=== PATIENT | female | born 1995 | race Caucasian/White ===

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

== ENCOUNTER 2018-05-19 15:44 | Emergency (ER) | payer BC ==
--- NOTE | 2018-05-19 16:16 | ED ---
Abdominal Pain/Female - HPI Summary HPI Summary: The pt is a 22 y/o female [facility]/o abd pain since 3 days ago. She notes bloody diarrhea, nausea, MUNOZ, fatigue , and neck pain but denies vomiting, loss of appetite, dizziness, and light headedness. She was seen at the [facility] where she was given 2L IV fluids for dehydration. The intermittent cramping pain is rated 8/10 in severity at its worst. She denies recent domestic and international travel. She notes a hx of migraines and denies a hx of ulcers. - History of Current Complaint Chief Complaint: EDGeneral Stated Complaint: ABD PAIN/HEADACHE Time Seen by Provider: 05/19/18 16:13 Hx Obtained From: Patient Onset/Duration: Lasting Days - 3 days, Still Present Timing: Intermittent Episode Lasting Severity Initially: Moderate - 6/10 Severity Currently: Severe Pain Intensity: 8 Pain Scale Used: 0-10 Numeric Location: Diffuse Character: Cramping Aggravating Factor(s): Nothing Alleviating Factor(s): Nothing Associated Signs and Symptoms: Positive: Nausea, Diarrhea. Negative: Decreased Appetite, Vomiting Allergies/Adverse Reactions: Allergies Allergy/AdvReac Type Severity Reaction Status Date / Time diphenhydramine Allergy Swelling Verified 05/21/18 00:18 [From Benadryl] Of Face,Lips,& Throat Penicillins Allergy Swelling Verified 05/21/18 00:18 Of Face,Lips,& Throat PMH/Surg Hx/FS Hx/Imm Hx Previously Healthy: No Endocrine/Hematology History: Denies: Hx Diabetes Cardiovascular History: Denies: Hx Hypertension, Hx Pacemaker/ICD Respiratory History: Reports: Hx Asthma GI History: Denies: Hx Ulcer History: Denies: Hx Renal Disease Sensory History: Reports: Hx Contacts or Glasses Denies: Hx Hearing Aid Opthamlomology History: Reports: Hx Contacts or Glasses Neurological History: Reports: Hx Migraine, Other Neuro Impairments/Disorders - Hx neurocysticercosis Psychiatric History: Reports: Hx Anxiety, Hx Depression Denies: Hx Panic Disorder - Cancer History Cancer Type, Location and Year: None reported - Surgical History Surgery Procedure, Year, and Place: TONSILECTOMY Infectious Disease History: No Infectious Disease History: Denies: Traveled Outside the [place] in Last 30 Days - Family History Known Family History: Positive: Hypertension - father, Diabetes - gramma, Other - epilepsy - Social History Occupation: Student Lives: Dormitory/Roommates Alcohol Use: Rare Hx Substance Use: No Substance Use Type: Reports: None Hx Tobacco Use: No Smoking Status (MU): Never Smoked Tobacco Review of Systems Constitutional: Negative - Dizziness, light headedness Positive: Fatigue ENT: Other - Positive: Neck pain Positive: Abdominal Pain, Diarrhea, Nausea, Other - Positive: Blood in stool . Negative: Vomiting Positive: Headache All Other Systems Reviewed And Are Negative: Yes Physical Exam - Summary Physical Exam Summary: Appearance: Well-appearing, Well-nourished, lying in bed comfortably Skin: Warm, dry, no obvious rash Eyes: sclera anicteric, no conjunctival pallor ENT: mucous membranes moist, pharynx appears normal Neck: Supple, nontender Respiratory: Clear to auscultation, no signs of respiratory distress Cardiovascular: Mild tachycardia. No murmurs. Normal distal pulses in tibial and radial bilaterally. Abdomen: Soft, tender in the L side, normal active bowel sounds present, No peritoneal signs Musculoskeletal: Normal, Strength/ROM Intact Neurological: A&Ox3, awake and alert, mentation is normal, speech is fluent and appropriate Psychiatric: affect is normal, does not appear anxious or depressed Triage Information Reviewed: Yes Vital Signs On Initial Exam: Initial Vitals Temp Pulse Resp BP Pulse Ox 99.8 F 104 19 104/51 99 05/19/18 16:07 05/19/18 16:07 05/19/18 16:07 05/19/18 16:07 05/19/18 16:07 Vital Signs Reviewed: Yes Diagnostics - Vital Signs Vital Signs Temp Pulse Resp BP Pulse Ox 05/19/18 16:07 99.8 F 104 19 104/51 99 - Laboratory Lab Statement: Any lab studies that have been ordered have been reviewed, and results considered in the medical decision making process. - CT Abd/Pel CT CT Interpretation Completed By: Radiologist - IMPRESSION: No acute intra- abdominal findings. The ED physician reviewed this radiology report. Abdominal Pain Fem Course/Dx - Course Course Of Treatment: A 22 year-old F presents to the ED with a CC of abd pain since 3 days ago. She notes bloody diarrhea (lasting 3 days) , nausea, MUNOZ, fatigue , and neck pain but denies vomiting, loss of appetite, dizziness, and light headedness. A physical exam revealed mild tachycardia, L sided abdominal tenderness and no peritoneal signs. An abd/Pel CT is unremarkable.In the ED course, pt was given Dicyclomine 10 mg PO, N.s 0,9% 2000 ml IV and Ondansetron 8mg IV which improved the symptoms. Patient will be discharged with a final Dx of gastroenteritis and dehydration. Pt is agreeable with this plan. Allergies noted. - Diagnoses Provider Diagnoses: Gastroenteritis, Dehydration Discharge - Sign-Out/Discharge Documenting (check all that apply): Patient Departure - Discharge Plan Condition: Improved Disposition: HOME Patient Education Materials: Dehydration (ED), Gastroenteritis (ED) Referrals: [facility] [Z.BUSINESS, APPLICATION, OTHER] - 2 Days (if not better) - Billing Disposition and Condition Condition: IMPROVED Disposition: Home - Attestation Statements Document Initiated by Maya: Yes Documenting Scribe: Eli Li Provider For Whom Rodrigoibe is Documenting (Include Credential): Dr. Shilo Cain MD Scribe Attestation: Eli Duvall scribed for Dr. Shilo Cain MD on 05/25/18 at 0839. Scribe Documentation Reviewed: Yes Provider Attestation: The documentation as recorded by the rodrigoibeEli accurately reflects the service I personally performed and the decisions made by me, Dr. Shilo Cain MD
[2018-05-19] MEDS ORDERED: NS 0.9% 1000 ML* 2,000 ML IV ONE (16:28)
[2018-05-19] MEDS ORDERED: Dicyclomine CAP* 10 MG PO ONE (16:28)
[2018-05-19] MEDS ORDERED: Ondansetron INJ* 2 MG/ML VIAL IV ONE (16:29)
[2018-05-19] MEDS ORDERED: Iohexol 300* (CONTRAST) 10 ML SDV IV ONE (18:20)
[2018-05-19 20:32] VITALS: BP 117/89
== END 2018-05-19 20:43 | disposition home or self-care (01) ==
LOC: ED 15:44
DX: K52.9 Noninfective gastroenteritis and colitis, unspecified (principal); E86.0 Dehydration; Z88.0 Allergy status to penicillin; Z88.8 Allergy status to other drugs, medicaments and biological substances
CPT/HCPCS: 74177; 96374; 99283; A9270-GY; J2405; Q9967

== ENCOUNTER 2018-05-21 00:13 | Observation (INO) | payer BC ==
[2018-05-21] MEDS ORDERED: Metoclopramide IV* 5 MG/ML 2 ML VIAL IV SLOW PU ONE (01:32)
[2018-05-21] MEDS ORDERED: NS 0.9% 1000 ML* 2,000 ML IV ONE (01:32)
[2018-05-21] MEDS ORDERED: Pantoprazole IV* 40 MG IV ONE (01:33)
[2018-05-21 02:20] LABS: ABS Basophils 0.1 10^3/ul (0-0.2); ABS Eosinophils 0 10^3/ul (0-0.6); ABS Lymphocytes 1.4 10^3/ul (1.0-4.8); ABS Monocytes 1.4 10^3/ul (0-0.8); ABS Neutrophils 9.6 10^3/ul (1.5-7.7); ABS Nucleated RBC 0 10^3/ul; Eosinophil % 0 % (0-6); Hematocrit 36 % (35-47); Hemoglobin 12.2 g/dl (12.0-16.0); Lymphocyte % 11.5 % (25-47); Mean Corpuscular HGB Conc 34 g/dl (31-36); Mean Corpuscular Hemoglobin 28 pg (27-31); Mean Corpuscular Volume 83 fL (80-97); Nucleated Red Blood Cells % 0; Platelet Count 179 10^3/ul (150-450); Red Blood Count 4.31 10^6/ul (4.00-5.40); Red Cell Distribution Width 13 % (10.5-15); White Blood Count 12.5 10^3/ul (3.5-10.8)
[2018-05-21 02:28] LABS: INR 1.25 (0.77-1.02)
[2018-05-21 02:38] LABS: EGFR Non-African American 95.6 (>60)
[2018-05-21 02:42] LABS: Urine Appearance Cloudy; Urine Blood Negative (Negative); Urine Color Amber; Urine Ketones 1+ (Negative); Urine Protein 1+(30 mg/dL) (Negative); Urine Red Blood Cell 2+(6-10/hpf) (Absent); Urine Specific Gravity 1.036 (1.010-1.030); Urine Urobilinogen Negative (Negative); Urine White Blood Cell 2+(11-20/hpf) (Absent)
[2018-05-21] MEDS ORDERED: Levofloxacin 500 MG IVPREMIX(* 500 MG/100 ML BAG IVPB ONE (03:12)
[2018-05-21] MEDS ORDERED: Potassium Chloride LIQUID* 20 MEQ PACKET PO ONE (03:12)
--- NOTE | 2018-05-21 04:27 | ED ---
GI/ HPI - HPI Summary HPI Summary: A 22 y/o female presents to the ED c/o severe N/V since 05/14/2018. She also c/o abd pain, trouble eating, weakness, supposed fever of 102.5, migraines. She rates her pain as a 5/10. She went to [facility] 05/19/2018 when she was given fluids. She eventually came to the ED with a CC of diarrhea and given more fluids. She returns to the ED today, 05/21/2018 being rid of diarrhea for 24 hours. She denies a Hx of IBS. She states that she has a Hx of a parasite she left the [place]. She has been taking ibuprofen and advil. - History of Current Complaint Chief Complaint: EDNauseaVomitDiarrh Time Seen by Provider: 05/21/18 01:21 Stated Complaint: NAUSEA/VOMITING/FEVER Hx Obtained From: Patient Onset/Duration: Started Days Ago, Still Present Severity: Moderate Current Severity: Moderate Pain Intensity: 5 - out of 10 Location of Pain: Diffuse Associated Signs and Symptoms: Positive: Nausea, Vomiting, Change in Appetite - Additional Pertinent History Primary Care Physician: [id number] - Allergy/Home Medications Allergies/Adverse Reactions: Allergies Allergy/AdvReac Type Severity Reaction Status Date / Time diphenhydramine Allergy Swelling Verified 05/21/18 00:18 [From Benadryl] Of Face,Lips,& Throat Penicillins Allergy Swelling Verified 05/21/18 00:18 Of Face,Lips,& Throat PMH/Surg Hx/FS Hx/Imm Hx Endocrine/Hematology History: Denies: Hx Diabetes Cardiovascular History: Denies: Hx Hypertension, Hx Pacemaker/ICD Respiratory History: Reports: Hx Asthma GI History: Denies: Hx Ulcer History: Denies: Hx Renal Disease Sensory History: Reports: Hx Contacts or Glasses Denies: Hx Hearing Aid Opthamlomology History: Reports: Hx Contacts or Glasses Neurological History: Reports: Hx Migraine, Other Neuro Impairments/Disorders - Hx neurocysticercosis Psychiatric History: Reports: Hx Anxiety, Hx Depression Denies: Hx Panic Disorder - Cancer History Cancer Type, Location and Year: None reported - Surgical History Surgery Procedure, Year, and Place: TONSILECTOMY - Immunization History Immunizations Up to Date: Yes Infectious Disease History: No Infectious Disease History: Denies: Traveled Outside the [place] in Last 30 Days - Family History Known Family History: Positive: Hypertension - father, Diabetes - gramma, Other - epilepsy - Social History Alcohol Use: Rare Hx Substance Use: No Substance Use Type: Reports: None Hx Tobacco Use: No Smoking Status (MU): Never Smoked Tobacco Review of Systems Positive: Fever Positive: Abdominal Pain, Vomiting - difficulty eating due to vomiting, Nausea. Negative: Diarrhea Neurological: Other - Positive: migraine Positive: Weakness All Other Systems Reviewed And Are Negative: Yes Physical Exam - Summary Physical Exam Summary: VITAL SIGNS: Reviewed. GENERAL: Patient is a well-developed and nourished FEMALE who is lying comfortable in the stretcher. Patient is not in any acute respiratory distress. HEAD AND FACE: No signs of trauma. No ecchymosis, hematomas or skull depressions. No sinus tenderness. EYES: PERRLA, EOMI x 2, No injected conjunctiva, no nystagmus. EARS: Hearing grossly intact. Ear canals and tympanic membranes are within normal limits. MOUTH: Pharyngeal erythema with post nasal drip NECK: Supple, trachea is midline, no adenopathy, no JVD, no carotid bruit, no c- spine tenderness, neck with full ROM. CHEST: Symmetric, no tenderness at palpation LUNGS: Clear to auscultation bilaterally. No wheezing or crackles. CVS: Regular rate and rhythm, S1 and S2 present, no murmurs or gallops appreciated. ABDOMEN: Soft, non-tender. No signs of distention. No rebound no guarding, and no masses palpated. Bowel sounds are normal. Back exam did show right CVA tenderness. EXTREMITIES: FROM in all major joints, no edema, no cyanosis or clubbing. NEURO: Alert and oriented x 3. No acute neurological deficits. Speech is normal and follows commands. SKIN: Dry and warm Triage Information Reviewed: Yes Vital Signs On Initial Exam: Initial Vitals Temp Pulse Resp BP Pulse Ox 98.6 F 124 18 108/84 97 05/21/18 00:15 05/21/18 00:15 05/21/18 00:15 05/21/18 00:15 05/21/18 00:15 Vital Signs Reviewed: Yes Diagnostics - Vital Signs Vital Signs Temp Pulse Resp BP Pulse Ox 05/21/18 02:24 96 105/63 99 05/21/18 02:05 98 98 05/21/18 01:54 89 114/69 98 05/21/18 01:31 98 05/21/18 01:24 111 87/67 98 05/21/18 00:15 98.6 F 124 18 108/84 97 - Laboratory Lab Results: Lab Results 05/21/18 05/21/18 05/21/18 Range/Units 02:12 02:12 02:12 WBC 12.5 H (3.5-10.8) 10^3/ul RBC 4.31 (4.00-5.40) 10^6/ul Hgb 12.2 (12.0-16.0) g/dl Hct 36 (35-47) % MCV 83 (80-97) fL MCH 28 (27-31) pg MCHC 34 (31-36) g/dl RDW 13 (10.5-15) % Plt Count 179 (150-450) 10^3/ul MPV 8.0 (7.4-10.4) fL Neut % (Auto) 76.4 (38-83) % Lymph % (Auto) 11.5 L (25-47) % Ware % (Auto) 11.3 H (0-7) % Eos % (Auto) 0 (0-6) % Baso % (Auto) 0.8 (0-2) % Absolute Neuts (auto) 9.6 H (1.5-7.7) 10^3/ul Absolute Lymphs (auto) 1.4 (1.0-4.8) 10^3/ul Absolute Monos (auto) 1.4 H (0-0.8) 10^3/ul Absolute Eos (auto) 0 (0-0.6) 10^3/ul Absolute Basos (auto) 0.1 (0-0.2) 10^3/ul Absolute Nucleated RBC 0 10^3/ul Nucleated RBC % 0 INR (Anticoag Therapy) 1.25 H (0.77-1.02) APTT 29.1 (26.0-36.3) seconds Sodium 135 (135-145) mmol/L Potassium 2.9 L (3.5-5.0) mmol/L Chloride 105 (101-111) mmol/L Carbon Dioxide 18 L (22-32) mmol/L Anion Gap 12 H (2-11) mmol/L BUN 8 (6-24) mg/dL Creatinine 0.77 (0.51-0.95) mg/dL Est GFR ( Amer) 115.6 (>60) Est GFR (Non-Af Amer) 95.6 (>60) BUN/Creatinine Ratio 10.4 (8-20) Glucose 117 H (70-100) mg/dL Lactic Acid (0.5-2.0) mmol/L Calcium 9.2 (8.6-10.3) mg/dL Total Bilirubin 0.90 (0.2-1.0) mg/dL AST 11 L (13-39) U/L ALT 13 (7-52) U/L Alkaline Phosphatase 46 (34-104) U/L C-Reactive Protein 186.01 H (<8.01) mg/L Total Protein 7.6 (6.4-8.9) g/dL Albumin 3.9 (3.2-5.2) g/dL Globulin 3.7 (2-4) g/dL Albumin/Globulin Ratio 1.1 (1-3) Beta HCG, Quant < 0.60 mIU/mL Urine Color Urine Appearance Urine pH (5-9) Ur Specific [place] (1.010-1.030) Urine Protein (Negative) Urine Ketones (Negative) Urine Blood (Negative) Urine Nitrate (Negative) Urine Bilirubin (Negative) Urine Urobilinogen (Negative) Ur Leukocyte Esterase (Negative) Urine WBC (Auto) (Absent) Urine RBC (Auto) (Absent) Ur Squamous Epith Cells (Absent) Urine Bacteria (Absent) Hyaline Casts (Absent) Urine Glucose (Negative) Influenza A (Rapid) (Negative) Influenza B (Rapid) (Negative) Group A Strep Rapid (Negative) 05/21/18 05/21/18 05/21/18 Range/Units 02:12 02:23 02:43 WBC (3.5-10.8) 10^3/ul RBC (4.00-5.40) 10^6/ul Hgb (12.0-16.0) g/dl Hct (35-47) % MCV (80-97) fL MCH (27-31) pg MCHC (31-36) g/dl RDW (10.5-15) % Plt Count (150-450) 10^3/ul MPV (7.4-10.4) fL Neut % (Auto) (38-83) % Lymph % (Auto) (25-47) % Ware % (Auto) (0-7) % Eos % (Auto) (0-6) % Baso % (Auto) (0-2) % Absolute Neuts (auto) (1.5-7.7) 10^3/ul Absolute Lymphs (auto) (1.0-4.8) 10^3/ul Absolute Monos (auto) (0-0.8) 10^3/ul Absolute Eos (auto) (0-0.6) 10^3/ul Absolute Basos (auto) (0-0.2) 10^3/ul Absolute Nucleated RBC 10^3/ul Nucleated RBC % INR (Anticoag Therapy) (0.77-1.02) APTT (26.0-36.3) seconds Sodium (135-145) mmol/L Potassium (3.5-5.0) mmol/L Chloride (101-111) mmol/L Carbon Dioxide (22-32) mmol/L Anion Gap (2-11) mmol/L BUN (6-24) mg/dL Creatinine (0.51-0.95) mg/dL Est GFR ( Amer) (>60) Est GFR (Non-Af Amer) (>60) BUN/Creatinine Ratio (8-20) Glucose (70-100) mg/dL Lactic Acid 0.5 (0.5-2.0) mmol/L Calcium (8.6-10.3) mg/dL Total Bilirubin (0.2-1.0) mg/dL AST (13-39) U/L ALT (7-52) U/L Alkaline Phosphatase (34-104) U/L C-Reactive Protein (<8.01) mg/L Total Protein (6.4-8.9) g/dL Albumin (3.2-5.2) g/dL Globulin (2-4) g/dL Albumin/Globulin Ratio (1-3) Beta HCG, Quant mIU/mL Urine Color Maude Urine Appearance Cloudy Urine pH 5.0 (5-9) Ur Specific [place] 1.036 H (1.010-1.030) Urine Protein 1+(30 mg/dl) A (Negative) Urine Ketones 1+ A (Negative) Urine Blood Negative (Negative) Urine Nitrate Negative (Negative) Urine Bilirubin Negative (Negative) Urine Urobilinogen Negative (Negative) Ur Leukocyte Esterase Trace A (Negative) Urine WBC (Auto) 2+(11-20/hpf) A (Absent) Urine RBC (Auto) 2+(6-10/hpf) A (Absent) Ur Squamous Epith Cells Present A (Absent) Urine Bacteria Absent (Absent) Hyaline Casts Present A (Absent) Urine Glucose Negative (Negative) Influenza A (Rapid) (Negative) Influenza B (Rapid) (Negative) Group A Strep Rapid Negative (Negative) 05/21/18 Range/Units 02:44 WBC (3.5-10.8) 10^3/ul RBC (4.00-5.40) 10^6/ul Hgb (12.0-16.0) g/dl Hct (35-47) % MCV (80-97) fL MCH (27-31) pg MCHC (31-36) g/dl RDW (10.5-15) % Plt Count (150-450) 10^3/ul MPV (7.4-10.4) fL Neut % (Auto) (38-83) % Lymph % (Auto) (25-47) % Ware % (Auto) (0-7) % Eos % (Auto) (0-6) % Baso % (Auto) (0-2) % Absolute Neuts (auto) (1.5-7.7) 10^3/ul Absolute Lymphs (auto) (1.0-4.8) 10^3/ul Absolute Monos (auto) (0-0.8) 10^3/ul Absolute Eos (auto) (0-0.6) 10^3/ul Absolute Basos (auto) (0-0.2) 10^3/ul Absolute Nucleated RBC 10^3/ul Nucleated RBC % INR (Anticoag Therapy) (0.77-1.02) APTT (26.0-36.3) seconds Sodium (135-145) mmol/L Potassium (3.5-5.0) mmol/L Chloride (101-111) mmol/L Carbon Dioxide (22-32) mmol/L Anion Gap (2-11) mmol/L BUN (6-24) mg/dL Creatinine (0.51-0.95) mg/dL Est GFR ( Amer) (>60) Est GFR (Non-Af Amer) (>60) BUN/Creatinine Ratio (8-20) Glucose (70-100) mg/dL Lactic Acid (0.5-2.0) mmol/L Calcium (8.6-10.3) mg/dL Total Bilirubin (0.2-1.0) mg/dL AST (13-39) U/L ALT (7-52) U/L Alkaline Phosphatase (34-104) U/L C-Reactive Protein (<8.01) mg/L Total Protein (6.4-8.9) g/dL Albumin (3.2-5.2) g/dL Globulin (2-4) g/dL Albumin/Globulin Ratio (1-3) Beta HCG, Quant mIU/mL Urine Color Urine Appearance Urine pH (5-9) Ur Specific [place] (1.010-1.030) Urine Protein (Negative) Urine Ketones (Negative) Urine Blood (Negative) Urine Nitrate (Negative) Urine Bilirubin (Negative) Urine Urobilinogen (Negative) Ur Leukocyte Esterase (Negative) Urine WBC (Auto) (Absent) Urine RBC (Auto) (Absent) Ur Squamous Epith Cells (Absent) Urine Bacteria (Absent) Hyaline Casts (Absent) Urine Glucose (Negative) Influenza A (Rapid) Negative (Negative) Influenza B (Rapid) Negative (Negative) Group A Strep Rapid (Negative) Result Diagrams: 05/21/18 02:12 05/21/18 02:12 Lab Statement: Any lab studies that have been ordered have been reviewed, and results considered in the medical decision making process. - CT abdomen/pelvis CT Interpretation Completed By: Radiologist - No acute findings. ED physician has reviewed this imaging report. Re-Evaluation - Re-Evaluation First Eval Re-Evaluation Time: 03:15 Change: Unchanged Comment: Pt had right CVA tenderness indicative of pyelonephritis. GIGU Course/Dx - Course Course Of Treatment: A 22 y/o female presents to the ED c/o severe N/V since 05/14/2018. She stopped having diarrhea 24 hours ago. Her PE revealed pharyngeal erythema with post nasal drip. Her urine is positive for infection. She has a CRP 180. Her CT abdomen/pelvis showed no acute findings. Upon re-eval she had CVA tenderness. Dx: UTI, pyelonephritis. She will be admitted to Dr. Goodman, Hospitalist. - Diagnoses Provider Diagnoses: UTI (urinary tract infection), Pyelonephritis - Physician Notifications Discussed Care Of Patient With: Mendez Time Discussed With Above Provider: 06:15 Instructed by Provider To: Other - Time: 309 Dr. goodman was paged to admit patient. Time:[address] Goodman and she agreed to admit patient. Discharge - Sign-Out/Discharge Documenting (check all that apply): Patient Departure - Admit - Discharge Plan Condition: Fair Disposition: ADMITTED TO [facility] Referrals: No Primary Care Phys,NOPCP [Primary Care Provider] - - Billing Disposition and Condition Condition: FAIR Disposition: Admitted to [facility] - Attestation Statements Document Initiated by Maya: Yes Documenting Scribe: Tony Grullon Provider For Whom Maya is Documenting (Include Credential): Olaf Kim MD Scribe Attestation: Tony Duvall, scribed for Olaf Kim MD on 05/21/18 at 0622. Scribe Documentation Reviewed: Yes Provider Attestation: The documentation as recorded by the Tony motta accurately reflects the service I personally performed and the decisions made by me, Olaf Kim MD
[2018-05-21] MEDS ORDERED: Ketorolac INJ* 30 MG/ML 1 ML VIAL IV PUSH PRN (06:23)
[2018-05-21] MEDS ORDERED: NAPROXEN SODIUM PO PRN (06:24)
[2018-05-21] MEDS ORDERED: Dicyclomine CAP* 10 MG PO PRN (06:24)
[2018-05-21] MEDS ORDERED: SUMATRIPTAN PO PRN (06:24)
[2018-05-21] MEDS ORDERED: NS 0.9% 1000 ML* 1,000 ML IV SCH (06:30)
[2018-05-21] MEDS: Acetaminophen TAB* 325 MG PO PRN ×2 (07:58→14:15)
[2018-05-21] MEDS ORDERED: Albuterol HFA INHALER* 8 gm MDI INH PRN (08:34)
[2018-05-21] MEDS ORDERED: NS 0.9% 1000 ML* 1,000 ML IV ONE (08:37)
[2018-05-21] MEDS ORDERED: NORETHINDRONE E ESTRADIOL IRON PO SCH ×2 (09:00→23:30)
[2018-05-21] MEDS ORDERED: Montelukast Sodium TAB* 10 MG PO SCH (09:00)
[2018-05-21] MEDS ORDERED: Sertraline* 50 MG TAB PO SCH (09:00)
[2018-05-21] MEDS ORDERED: TOPIRAMATE 200 MG PO SCH (09:00)
[2018-05-21] MEDS: Ondansetron INJ* 2 MG/ML VIAL IV PRN ×3 (09:09→21:43)
[2018-05-21] MEDS ORDERED: Potassium Chlor TAB* 20 MEQ TAB.ER PO ONE (10:00)
[2018-05-21] MEDS: Sertraline* 50 MG TAB PO SCH (14:16)
[2018-05-21] MEDS: NS 0.9% 1000 ML* 1,000 ML IV SCH ×2 (14:19→21:23)
[2018-05-21] MEDS ORDERED: TOPIRAMATE 100 MG PO SCH (21:00)
--- NOTE | 2018-05-21 22:12 | HP ---
CC: [facility], [facility] * HISTORY AND PHYSICAL: DATE OF ADMISSION: 05/21/18 PRIMARY CARE PROVIDER: [facility]. CHIEF COMPLAINT: Vomiting and fever. HISTORY OF PRESENT ILLNESS: Ms. Perez is a 22-year-old female, who had a cold the weekend after . She states that it went away fairly quickly and then was feeling back to normal. Last Friday, she states that she was not feeling so great. She describes abdominal discomfort, but still is able to go to class. last week, she began to have diarrhea. She describes this as being loose stools 2 to 3 times a day. This continued Friday and Friday last week. She states that she took an antidiarrheal on Friday due to the need to get some work done. She then states that she did not have a bowel movement for a couple of days. She ultimately presented to the [facility] on 05/19/18 with these complaints and was felt to be dehydrated. She received 2 L of normal saline and is still feeling unwell and therefore recommended to go to the emergency room. The patient went to the ER and ultimately was diagnosed with gastroenteritis and discharged home. Reportedly, the patient had a fever as she was leaving the emergency room as well as another loose bowel movement. The patient continues to have crampy abdominal pain. She feels it is most in the upper quadrants. She has never had anything like this in the past. She denies any pete blood in the stool except for 1 episode where she did note some bright red blood per rectum. On the evening prior to admission, she states that she began to vomit. The vomit was essentially greenish colored mucus. She also had some dry heaves. She developed a fever of 102.5 on the night prior to admission. Because of these symptoms, she ultimately presented to the emergency room on the systems management consultant of 05/21/18. The patient does feel slightly better since being in the emergency room, though continues to have crampy abdominal pain and nausea. The patient denies any dysuria. She denies any increased frequency of urination, but has noted some increased volume of urination; however, she has been trying to increase her fluid intake. She has no hesitation or straining with urination. PAST MEDICAL HISTORY: 1. Migraines. 2. 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 3. Asthma. PAST SURGICAL HISTORY: Tonsillectomy. MEDICATIONS: 1. Trokendi 100 mg p.o. q.h.s. 2. Zoloft 50 mg p.o. daily. 3. Albuterol 2 puffs inhaled q.4 hours p.r.n. shortness of breath. 4. Treximet 1 tab p.o. daily p.r.n. migraine. 5. Microgestin Fe 08/02 one tab p.o. daily. ALLERGIES: BENADRYL and PENICILLIN. FAMILY HISTORY: Mom is living, she is 50 and healthy. Dad is also living, he is 49 and healthy. SOCIAL HISTORY: The patient is a nonsmoker. She drinks alcohol rarely. 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 She is not . She has no children. She indicates that her parents will be her health care proxies. REVIEW OF SYSTEMS: The patient's review of systems is as per HPI and otherwise a complete 11-system review of systems is negative except for the fact that the patient does state that her appetite has been poor recently. PHYSICAL EXAMINATION GENERAL: The patient is a well-developed, young, obese female, seen sitting up in the bed, in no acute distress. VITAL SIGNS: Blood pressure 102/63, pulse 109, respirations 18, temp 98.6. HEENT: Pupils are equal and round. Extraocular movements are intact. Oropharynx is clear. Oral mucosa is moist. There is no submandibular, cervical , or supraclavicular adenopathy. Thyroid is not enlarged. No thyroid nodules are noted. PULMONARY: Lungs are clear to auscultation bilaterally. CARDIAC: Normal S1 and S2. Regular rate and rhythm. I do not appreciate any murmurs. ABDOMEN: Bowel sounds are present. Abdomen is soft, nondistended. She is mildly tender to palpation in the upper quadrants. MUSCULOSKELETAL: There is no cyanosis or clubbing of the digits. There is full active range of motion. NEUROLOGIC: Cranial nerves II through XII are grossly intact. Sensation is intact to light touch throughout. Strength is 5/5 and symmetric in both upper and lower extremities bilaterally. PSYCH: The patient is alert, she is oriented x3. Affect appears appropriate. SKIN: Warm and dry. There are no rashes. DIAGNOSTIC STUDIES/LAB DATA: WBC 12.5, hemoglobin 12.2, hematocrit 36, platelets 179. INR 1.25. Sodium 135, potassium 2.9, chloride 105, CO2 18, BUN 8, creatinine 0.77, glucose 117, lactic acid 0.5, calcium 9.2. Bilirubin 0.9, AST 11, ALT 13, alk phos 46. CRP 186.01. Albumin 3.9. Urinalysis reveals cloudy urine with specific gravity of 1.036, 1+ protein, 1+ ketones, trace leukocyte esterase, 2+ wbc's, 2+ rbc's, absent bacteria, and positive for hyaline cast. Influenza A and B negative. Group A strep negative. CT abdomen and pelvis reveals no acute findings. Abdomen ultrasound reveals no hydronephrosis or nephrolithiasis. ASSESSMENT AND PLAN: Ms. Perez is a 22-year-old female, who presents to the emergency room for the second time with complaints of nausea, vomiting, but now fever and crampy abdominal pain. 1. Nausea, vomiting, abdominal pain, and fever. My suspicion is that the patient is suffering from gastroenteritis that has been lingering. The patient did receive a dose of Levaquin in the emergency room for a possible pyelonephritis; however, as she has no urinary tract infection symptoms, CVA tenderness, and absent bacteria in her urine, I suspect this is less likely. I am going to hold off on any further antibiotic treatment. The patient will be aggressively hydrated overnight. She will continue on a clear liquid diet for now. She will have Zofran available for nausea. We will monitor her vital signs and symptoms overnight and perhaps she can be discharged home tomorrow. 2. Hypokalemia. This is likely related to the patient's vomiting. She will be given potassium supplementation in addition to what she has already received in the emergency room. Labs will be rechecked tomorrow. 3. Migraines. The patient's parents will bring in her Trokendi. We will continue this at her home dose. 4. Depression. Continue Zoloft. 5. DVT prophylaxis. According to the Adult Thrombosis Risk Factor Assessment Guide the patient has a total risk factor score of 2 making her moderate risk. Ambulation will be utilized as DVT prophylaxis. Code status is full. TIME SPENT: Sixty-five minutes was spent admitting this patient. [id number]/[facility] #: [id number] IVETH
[2018-05-22] MEDS: NS 0.9% 1000 ML* 1,000 ML IV SCH (06:08)
[2018-05-22] MEDS ORDERED: Levofloxacin 750 MG IVPREMIX(* 750 MG/150 ML BAG IVPB ONE (06:23)
[2018-05-22 07:02] LABS: ABS Basophils 0.1 10^3/ul (0-0.2); ABS Eosinophils 0 10^3/ul (0-0.6); ABS Lymphocytes 1.8 10^3/ul (1.0-4.8); ABS Monocytes 0.7 10^3/ul (0-0.8); ABS Neutrophils 5.3 10^3/ul (1.5-7.7); ABS Nucleated RBC 0 10^3/ul; Eosinophil % 0.2 % (0-6); Hematocrit 34 % (35-47); Lymphocyte % 23.4 % (25-47); Mean Corpuscular HGB Conc 35 g/dl (31-36); Mean Corpuscular Hemoglobin 29 pg (27-31); Mean Corpuscular Volume 83 fL (80-97); Mean Platelet Volume 8.1 fL (7.4-10.4); Nucleated Red Blood Cells % 0; Platelet Count 173 10^3/ul (150-450); Red Cell Distribution Width 13 % (10.5-15); White Blood Count 7.9 10^3/ul (3.5-10.8)
[2018-05-22 07:19] LABS: EGFR Non-African American 143.9 (>60)
[2018-05-22] MEDS: Sertraline* 50 MG TAB PO SCH (09:32)
[2018-05-22 14:06] VITALS: BP 101/55
--- NOTE | 2018-05-23 04:56 | DS ---
CC: [facility]. * DISCHARGE SUMMARY: DATE OF ADMISSION: 05/21/18 DATE OF DISCHARGE: 05/22/18 PRIMARY CARE PROVIDER: [facility]. PRINCIPAL DIAGNOSIS: Probable viral gastroenteritis. SECONDARY DIAGNOSIS: Migraines. DISCHARGE MEDICATIONS: 1. Trokendi XR 100 mg p.o. daily at bedtime. 2. Sertraline 50 mg p.o. daily. 3. Albuterol 2 puffs inhale q.4 hours p.r.n. shortness of breath. 4. Treximet 85/500 one tab p.o. daily p.r.n. migraine. 5. Microgestin Fe 08/02 one tab p.o. daily. HOSPITAL COURSE: Ms. Perez is a 22-year-old female who began to feel ill approximately 1 week prior to admission. She initially started with cold symptoms, though subsequently progressed to having diarrhea. The patient was seen in the ER on 05/19/18, was diagnosed with gastroenteritis and sent home. The patient then developed fever and vomiting. She returned to the emergency room for evaluation. In the ER on her return trip, the patient was found to have an elevated white blood cell count at 12.5. Her CRP was also noted to be markedly elevated at 186.01. Her potassium was also low at 2.9. The patient was admitted and hydrated overnight. Her potassium was repleted. At this point , the patient has not had any further liquid stool, though she is continuing to have very soft, small bowel movements. She has not had any vomiting. She has tolerated regular food. At this point, it was felt the patient is stable for discharge home. She has been instructed to continue to monitor her symptoms and to return to the ER for any worsening or change in symptoms that is concerning. On the day of discharge, the patient is awake, alert, and oriented, sitting up in bed, in no acute distress. Her cardiac exam reveals a normal S1, S2 with a regular rate and rhythm. Her lungs are clear. Her abdomen is soft, nontender, nondistended. Her vital signs reveal a blood pressure of 106/65, pulse of 87, respiratory rate of 16, temp of 97.4. FOLLOWUP CONCERNS: The patient is being discharged home today, 05/22/18. Activity level is as tolerated. Diet is regular as tolerated. She has been instructed to start with a BRAT diet and advance as she is able. She is to follow up with [facility] the next 4 to 7 days. TIME SPENT: Twenty five minutes spent discharging this patient. [id number]/[facility] #: [id number] IVETH
== END 2018-05-22 15:10 | disposition home or self-care (01) ==
LOC: ED 00:13 → INTOOBSV 06:19 → MED 06:19 → UNDODISIN 05-22 15:10
PROVIDERS: ADMIT Internal Medicine; ATTEND Hospitalist
DX: G43.909 Migraine, unspecified, not intractable, without status migrainosus (principal); R11.10 Vomiting, unspecified; R50.9 Fever, unspecified; J45.909 Unspecified asthma, uncomplicated; Z88.0 Allergy status to penicillin; R10.9 Unspecified abdominal pain; R19.7 Diarrhea, unspecified
CPT/HCPCS: 36415; 74176; 76705; 80048; 80053; 81003; 81015; 83605; 84702; 85025; 85610; 85730; 86140; 87040; 87086; 87651; 96365; 96374; 96375; 99284; A9270-GY; G0378; J1885; J1956; J2405; J2765